=== PATIENT | male | born 1985 | race Two or more races ===

== ENCOUNTER 2016-08-22 04:55 | Emergency (ER) | payer BC, OTHER ==
[~2016-08-22] VITALS: Ht 167.6 cm; Wt 79.4 kg
[2016-08-22] MEDS ORDERED: Famotidine 20 MG/ 2ML VIAL IVP ONE (05:30)
[2016-08-22 05:48] LABS: APPEARANCE,URINE CLEAR; KETONES,URINE NEGATIVE (NEGATIVE); LEUKOCYTE ESTERASE ,URINE 1+ (NEGATIVE); NITRITE,URINE NEGATIVE (NEGATIVE); PH,URINE 6 (4.5-8.0); PROTEIN,URINE 2+ (NEGATIVE); UROBILINOGEN,URINE 4 MG/DL (0.0-1.0)
[2016-08-22 05:49] LABS: BASOPHILS % (AUTO) 0.5 % (0.0-2.0); LYMPHOCYTES % (AUTO) 18.6 % (20.0-45.0); MEAN CORPUSCULAR HEMOGLOBIN 28.9 PG (27.0-31.0); MEAN CORPUSCULAR HGB CONC 32.7 G/DL (32.0-36.0); MEAN CORPUSCULAR VOLUME 89 FL (80-99); MEAN PLATELET VOLUME 6.5 FL (6.5-10.1); MONOCYTES % (AUTO) 5.3 % (1.0-10.0); NEUTROPHILS % (AUTO) 75.6 % (45.0-75.0); PLATELET COUNT 200 K/UL (150-450); RED BLOOD COUNT 5.04 M/UL (4.70-6.10); RED CELL DISTRIBUTION WIDTH 11.6 % (11.6-14.8)
[2016-08-22 06:02] LABS: BACTERIA,URINE FEW /HPF; RBC,URINE 0-2 /HPF (0 - 0); SQUAMOUS EPITHELIAL CELL,UR FEW /LPF (NONE/OCC)
[2016-08-22 06:09] LABS: ALANINE AMINOTRANSFERASE 57 U/L (3-41); ANION GAP 17 (5-15); ASPARTATE AMINO TRANSFERASE 44 U/L (5-40); CALCIUM 9.4 mg/dL (8.6-10.2); CARBON DIOXIDE 26 mEQ/L (20-30); CHLORIDE 96 mEQ/L (98-107); CREATININE 1.1 mg/dL (0.7-1.2); GLOMERULAR FILTRATION RATE > 60 mL/min (>60); HEMOLYSIS 2; LIPASE 32 U/L (< 60); POTASSIUM 3.5 mEQ/L (3.4-4.9); SODIUM 139 mEQ/L (135-145); TOTAL PROTEIN 8.6 g/dL (6.6-8.7)
[2016-08-22 06:49] LABS: BILIRUBIN,DIRECT 0.4 mg/dL (0.1-0.3)
[2016-08-22 06:55] VITALS: BP 128/89
--- NOTE | 2016-08-22 12:22 | Diagnostic Imaging Report ---
Indication: COUGH Technique: One view of the chest Comparison: none Findings: Lungs and pleural spaces are clear. Heart size is normal. Impression: No acute process
--- NOTE | 2016-08-24 19:30 | Emergency Room Report ---
History of Present Illness General Chief Complaint: Generalized Weakness Source: Patient Present Illness HPI 31-year-old male presents ED for evaluation. Patient states for the last one week he's been having bodyaches and chills. Cough initially but has since resolved. Nausea but no diarrhea. Feels heartburn. Denies any chest pain or shortness of breath. Denies sick contacts or recent travel. No other aggravating or relieving factors. Denies any other associated symptoms Allergies: Coded Allergies: No Known Allergies (Unverified , 08/22/16) Patient History Past Medical History: asthma Past Surgical History: none Pertinent Family History: none Social History: Denies: alcohol use, drug use, smoking Immunizations: UTD Reviewed Nursing Documentation: PMH: Agreed, PSxH: Agreed Nursing Documentation-PMH Hx Asthma: Yes Review of Systems All Other Systems: negative except mentioned in HPI Physical Exam Vital Signs Date Time Temp Pulse Resp B/P Pulse Ox O2 Delivery O2 Flow Rate FiO2 08/22/16 05:09 98.4 72 18 99/65 98 Room Air Sp02 EP Interpretation: reviewed, normal General Appearance: no apparent distress, alert, GCS 15, non-toxic Head: normocephalic, atraumatic Eyes: bilateral eye PERRL, bilateral eye normal inspection ENT: hearing grossly normal, normal pharynx, no angioedema, normal voice Neck: full range of motion, supple/symm/no masses Respiratory: chest non-tender, lungs clear, normal breath sounds, speaking full sentences Cardiovascular #1: regular rate, rhythm, no edema Cardiovascular #2: 2+ carotid (R), 2+ carotid (L), 2+ radial (R), 2+ radial (L) , 2+ dorsalis pedis (R), 2+ dorsalis pedis (L) Gastrointestinal: normal bowel sounds, non tender, soft, non-distended, no guarding, no rebound Rectal: deferred Genitourinary: normal inspection, no CVA tenderness Musculoskeletal: back normal, gait/station normal, normal range of motion, non- tender Neurologic: alert, oriented x3, responsive, motor strength/tone normal, sensory intact, speech normal Psychiatric: judgement/insight normal, memory normal, mood/affect normal, no suicidal/homicidal ideation Reflexes: 3+ bicep (R), 3+ bicep (L), 3+ tricep (R), 3+ tricep (L), 3+ knee (R) , 3+ knee (L) Skin: normal color, no rash, warm/dry, well hydrated Lymphatic: no adenopathy Medical Decision Making Diagnostic Impression: Primary Impression: Viral syndrome ER Course Hospital Course 31-year-old male presents ED complaining of bodyaches and chills, weakness and nausea. differential diagnosis: gastritis, SBO, cholecystits, gastroenteritis Clinical course Patient placed on stretcher. On cardiac surgeon. After initial history and physical I ordered labs, IV fluids, Zofran and pepcid Labs - no leukocytosis, electrolytes ok, LFTs normal Upon reassessment, patient states he feels better. Likely viral syndrome. Recommend rest and fluids. I feel this is a highly complex case requiring extensive working including EKG/ Rhythm strip, Xray/CT/US, Blood/urine lab work, repeat exams while in ED, and administration of strong opiates/narcotics for pain control, admission to hospital or close patient follow up. Diagnosis - viral syndrome Stable and discharged to home. Followup with PMD. Return to ED if symptoms recur or worsen Labs Test 08/22/16 05:30 08/22/16 05:31 Urine Color Yellow Urine Appearance Clear Urine pH 6 (4.5-8.0) Urine Specific [place] 1.015 (1.005-1.035) Urine Protein 2+ (NEGATIVE) Urine Glucose (UA) Negative (NEGATIVE) Urine Ketones Negative (NEGATIVE) Urine Occult Blood Negative (NEGATIVE) Urine Nitrite Negative (NEGATIVE) Urine Bilirubin Negative (NEGATIVE) Urine Urobilinogen 4 MG/DL (0.0-1.0) Urine Leukocyte Esterase 1+ (NEGATIVE) Urine RBC 0-2 /HPF (0 - 0) Urine WBC 2-4 /HPF (0 - 0) Urine Squamous Epithelial Cells Few /LPF (NONE/OCC) Urine Bacteria Few /HPF (NONE) White Blood Count 8.0 K/UL (4.8-10.8) Red Blood Count 5.04 M/UL (4.70-6.10) Hemoglobin 14.6 G/DL (14.2-18.0) Hematocrit 44.6 % (42.0-52.0) Mean Corpuscular Volume 89 FL (80-99) Mean Corpuscular Hemoglobin 28.9 PG (27.0-31.0) Mean Corpuscular Hemoglobin Concent 32.7 G/DL (32.0-36.0) Red Cell Distribution Width 11.6 % (11.6-14.8) Platelet Count 200 K/UL (150-450) Mean Platelet Volume 6.5 FL (6.5-10.1) Neutrophils (%) (Auto) 75.6 % (45.0-75.0) Lymphocytes (%) (Auto) 18.6 % (20.0-45.0) Monocytes (%) (Auto) 5.3 % (1.0-10.0) Eosinophils (%) (Auto) 0.0 % (0.0-3.0) Basophils (%) (Auto) 0.5 % (0.0-2.0) Sodium Level 139 mEQ/L (135-145) Potassium Level 3.5 mEQ/L (3.4-4.9) Chloride Level 96 mEQ/L (98-107) Carbon Dioxide Level 26 mEQ/L (20-30) Anion Gap 17 (5-15) Blood Urea Nitrogen 12 mg/dL (7-23) Creatinine 1.1 mg/dL (0.7-1.2) Estimat Glomerular Filtration Rate > 60 mL/min (>60) Glucose Level 123 mg/dL (74-106) Calcium Level 9.4 mg/dL (8.6-10.2) Total Bilirubin 1.4 mg/dL (0.0-1.2) Direct Bilirubin 0.4 mg/dL (0.1-0.3) Aspartate Amino Transf (AST/SGOT) 44 U/L (5-40) Alanine Aminotransferase (ALT/SGPT) 57 U/L (3-41) Alkaline Phosphatase 61 U/L (40-129) Total Protein 8.6 g/dL (6.6-8.7) Albumin 4.3 g/dL (3.5-5.2) Globulin 4.3 g/dL Albumin/Globulin Ratio 1.0 (1.0-2.7) Lipase 32 U/L (< 60) Last Vital Signs Date Time Temp Pulse Resp B/P Pulse Ox O2 Delivery O2 Flow Rate FiO2 08/22/16 06:55 89 18 128/89 98 Room Air 08/22/16 06:55 98.9 Status: improved Disposition: HOME, SELF-CARE Condition: Stable Patient Instructions: Viral Respiratory Infection, [id number] QING LAMB M.D. Aug 24, 2016 19:30
== END 2016-08-22 06:58 | disposition home or self-care (01) ==
LOC: EMR 05:20
DX: B34.9 Viral infection, unspecified (principal)
CPT/HCPCS: 36415; 71010; 80053; 81003; 82248; 83690; 85025; 96361; 96374; 96375; 99284; J2405; S0028